=== PATIENT | male | born 1985 | race Caucasian/White ===

== ENCOUNTER 2019-01-20 01:10 | Emergency (ER) | payer OTHER ==
[~2019-01-20] VITALS: Ht 167.6 cm; Wt 77.1 kg
== END 2019-01-20 03:01 ==
LOC: ED 01:10
DX: S16.1XXA Strain of muscle, fascia and tendon at neck level, initial encounter (principal); S09.90XA Unspecified injury of head, initial encounter; Z91.040 Latex allergy status; V89.2XXA Person injured in unspecified motor-vehicle accident, traffic, initial encounter; Y93.89 Activity, other specified; Y92.89 Other specified places as the place of occurrence of the external cause; Y99.8 Other external cause status

== ENCOUNTER 2021-10-26 17:59 | Emergency (ER) | payer SELFPAY ==
[~2021-10-26] VITALS: Wt 77.1 kg
== END 2021-10-27 01:58 | disposition home or self-care (01) ==
LOC: ED 17:59
DX: S01.21XA Laceration without foreign body of nose, initial encounter (principal); W22.8XXA Striking against or struck by other objects, initial encounter; Y93.89 Activity, other specified; Y92.89 Other specified places as the place of occurrence of the external cause; Y99.8 Other external cause status